=== PATIENT | male | born 1970 | race Caucasian/White ===

== ENCOUNTER 2025-08-20 07:43 | Day surgery (SDC) | payer BC, SELFPAY ==
[2025-07-24 11:17] VITALS: BMI 35.6
[2025-07-24 11:46] LABS: Hematocrit 39.5 % (39.0-52.0); Hemoglobin 14.2 g/dL (13.0-18.0); Mean Corp Hgb Conc. 35.9 g/dL (33.0-37.0); Mean Corpuscular Volume 83.0 fL (80.0-94.0); Nucleated Red Blood Cells % 0 % (-); Platelet Count 265 10^3/uL (130-400); Red Cell Dist. Width 12.0 % (11.5-14.5)
[2025-07-24 11:57] LABS: ALT (SGPT) 16 U/L (0-50); AST (SGOT) 19 U/L (17-59); Albumin 5.1 g/dl (3.5-5.0); Alkaline Phosphatase 45 U/L (38-126); Blood Urea Nitrogen 9 mg/dl (9-20); Calcium 10.1 mg/dl (8.4-10.2); Carbon Dioxide 26 mmol/L (22-30); Chloride 95 mmol/L (98-107); Estimated Creatinine Clearance > 125 ml/min; Glucose 121 mg/dl (70-99); Magnesium 2.0 mg/dl (1.6-2.3); Potassium 3.7 mmol/L (3.5-5.1); Sodium 131 mmol/L (135-145); Total Protein 8.0 g/dl (6.3-8.2); eGFR > 60.00
[2025-07-24 12:10] LABS: INR 1.07; PT 14.4 Sec (11.4-14.6)
--- NOTE | 2025-07-24 12:14 | HPS.HSE ---
Family Physician
-
Family Physician: Ghassan Lockhart
Chief Complaint
-
Paroxysmal atrial fibrillation.
History of Present Illness
The patient is a 54 year old male presenting today for paroxysmal atrial fibrillation. The patient reports a history of significant exertional dyspnea and fatigue secondary to this diagnosis. He previously underwent a cardioversion in 2013
and pulmonary vein isolation in 2020 for his arrhythmia. Unfortunately, his arrhythmia returned in January 2024 after an alcoholic binge. He has cut down on his alcohol use since this incident but still remains in atrial fibrillation. He is on current
pharmacological therapy with Carvedilol. He notes that he has been compliant with Eliquis for oral anticoagulation. He would like to proceed with pulmonary vein isolation at this time for more definitive arrhythmia management. He denies any current
complaints today such as chest pain, shortness of breath at rest, palpitations, nausea, vomiting, diarrhea, lightheadedness, dizziness, cough, sore throat, or fever.
Medical History
Past Medical History
Past Medical History: Reports Other
Additional Past Medical History:
1. Paroxysmal atrial fibrillation, status post cardioversion, 10/2014, pulmonary vein isolation 08/2021; pharmacological therapy with Carvedilol and oral anticoagulation with Eliquis.
2. Hypertension.
3. Hyperlipidemia.
4. Congestive heart failure, preserved ejection fraction.
5. Obstructive sleep apnea, compliant with CPAP.
6. Multilevel degenerative disc disease.
7. Spinal stenosis.
8. Osteoarthritis.
9. ADHD.
10. Mild leukopenia.
11. Mild hyponatremia.
12. Obesity, BMI 35.6.
13. History of tobacco abuse with current vape use.
Past Surgical History: Reports Other
Additional Past Surgical History:
1. Pulmonary vein isolation.
2. Cardioversion.
3. C3-C4 ACDF.
4. C3 revision, C4-C7 fusion.
5. Lumbar laminectomy x2.
6. Umbilical hernia repair.
7. Colonoscopy.
Social History
Tobacco: Former Smoker (He is a former cigar smoker. He currently uses a vape daily. )
Alcohol: Other (Occasional use reported. )
Personal:
Living: Other (The patient lives in a two-story home with his .)
Family History
Family History: Not pertinent
Allergies / Home Medications
Allergy/Medication List:
Home medications:
1. Acetaminophen 650 mg p.o. every 4 hours as needed.
2. Dillon 3/fish oil 4000 mg p.o. daily.
3. Nexlizet 180-10 mg p.o. daily.
4. Carvedilol 25 mg p.o. twice a day.
5. Edarbyclor 40/25 mg, 1 tab p.o. daily.
6. Apixaban 5 mg p.o. twice a day.
7. Amlodipine 10 mg p.o. daily.
ALLERGIES: No known allergies.
Review of Systems
-
A 12 point ROS was completed and negative except as noted: Yes
Physical Exam
Vital Signs
Blood pressure 126/85. Heart rate 89. Respirations 18. Pulse ox 96%.
Height 5 feet, 8 inches. Weight 106.2 kg. BMI 35.6.
Physical Exam
General: Well Developed, Well Nourished and No Apparent Distress
HEENT: NormoCephalic, Moist mucous membranes, Atraumatic and PERRLA
Respiratory: Clear
Cardiac: Irregular Rhythm
GI: Soft, Non Tender, Non Distended and Other (Obese. )
Musculoskeletal: No Edema, Normal Gait & Station and Other (Right sided ankle brace noted. )
Skin: Warm and Dry
Neuro: AO x 3 and Nonfocal/grossly intact
Laboratory Results
-
07/24/25 11:26
07/24/25 11:26
Laboratory Results
PT 14.4 Sec (11.4-14.6) 07/24/25 11:26
INR 1.07 07/24/25 11:26
Total Bilirubin 0.5 mg/dl (0.2-1.3) 07/24/25 11:26
AST 19 U/L (17-59) 07/24/25 11:26
ALT 16 U/L (0-50) 07/24/25 11:26
Alkaline Phosphatase 45 U/L (38-126) 07/24/25 11:26
Magnesium 2.0.
Type and screen A negative.
EKG 07/24/2025: Atrial fibrillation. Nonspecific ST and T wave abnormality.
Chest CT 07/24/2025: Short segment common vestibule for the left superior and inferior pulmonary veins, fairly commonly seen and considered normal variant. No evidence for left atrial thrombus.
Echocardiogram 03/22/2023: Left atrial enlargement. Normal valvular structures. Normal left and right ventricular systolic function. Grade 1 diastolic dysfunction. Normal right ventricular systolic pressure.
Impression/Plan
-
IMPRESSION/PLAN:
1. Paroxysmal atrial fibrillation: The patient is in need of pulmonary vein isolation with Dr. Ghassan Saravia on 08/20/2025. The patient just underwent a cervical fusion in April 2025 and is assured by his neurosurgeon, Dr. Ulysses Diaz, that he is
ready to proceed with his ablation. The benefits and risks of the procedure have been explained to the patient. The patient understands these risks and wishes to proceed. He will not be required to undergo a pre-procedural transesophageal
echocardiogram as he has been compliant with his home oral anticoagulation. He is aware to continue his Eliquis uninterrupted for 30 days prior to his procedure. He will take no medications the morning of his ablation.
2. Mild hyponatremia: The patient will need a repeat sodium drawn the morning of his procedure per Dr. Saravia. He will need to come in earlier than usual for his repeat lab and, preferably, should not be the first surgical case. This information
was relayed to Ruth Ann is surgical scheduling pre-operatively.
[2025-08-20] VITALS (15 sets, daily range): BP systolic 107–149; BP diastolic 73–118
[2025-08-20] MEDS: TYLENOL 1000 MG PO (08:48)
[2025-08-20 11:30] LABS: ACT-LR - POC 268 Seconds (116-155)
[2025-08-20 11:50] LABS: ACT-LR - POC 236 Seconds (116-155)
--- NOTE | 2025-08-20 12:08 | ITS.CL.ABL ---
Tour Leader - Ablation
Ablation
Procedure Report:
ELECTROPHYSIOLOGY ABLATION STUDY
DATE:: August 20, 2025�����������������������������REFERRING: Dr. Jose A Lynch
INDICATION: Persistent supraventricular tachycardia in the form of atrial fibrillation.��Prior PVI in 2020
HISTORY: See H and P.��As above
ANTIARRHYTHMIC DRUG: Coreg
PRE-PROCEDURE KINZA: No atrial thrombus
PRESENTING RHYTHM: A-fib
'TIME-OUT':��called and confirmed.
SEDATION/ANESTHESIA:��provided via the anesthesia department using general anesthesia (LMA).
INTRAVENOUS/ARTERIAL ACCESS:
Right femoral venous - 8Fr
Left femoral venous - 8 Fr, 6 Fr
Ultrasound guidance for bilateral femoral vein access was utilized by me to obtain access with demonstration of normal anatomy
CHADS-VASC Score:
HAS-Bled Score
PROCEDURE:
1.��A decapolar CS catheter was placed within the CS for mapping and pacing.��This was also used as the reference catheter for the 3-D map.
2. The intracardiac ultrasound catheter was positioned in the RA to identify the FO for targeting of transseptal puncture, assist��in identification of the pulmonary vein ostia, monitoring pre and post ablation pulmonary vein flow velocities,
monitoring for 'bubble' formation during RF application as a sign of thermal injury,��and to monitor for pericardial effusion during mapping and ablation procedure.���Left atrial size, LV ejection fraction, and pulmonary vein flows were monitored
pre and post ablation procedure. The other valves were inspected and found to be free of significant regurgitation or stenosis.
3.��Half of the calculated heparin bolus was administered prior to the first transeptal puncture.��Transseptal puncture was performed to diagnose RA and LA pressure so that safety of LA mapping and ablation could be further assessed, and to access
the left atrium and pulmonary veins for mapping and ablation.��This entailed advancing an 16.8 Kosovan sheath, RF wire with dilator into the superior vena cava and withdrawing both (monitoring intracardiac ultrasound, fluoroscopy and tip pressure)
with the tip oriented toward the atrial septum.��The fossa ovalis was engaged (indicated by sudden displacement of the sheath tip as well as tenting of the fossa seen on intracardiac ultrasound).��Left atrial access required a pass with the
Brockenbrough needle extended.��Left atrial catheter position was confirmed by pressure monitoring (RA mean pressure 2 mm Hg and LA mean presure 4 mm Hg), LA saturation (99%),��as well as fluoroscopy and the left atrial pressure 4 was answered with
750 cc of normal saline fluids.��The sheath was advanced over the dilator and positioned in the left atrium.��This procedure was repeated for the Agilis sheath.��The remainder of the calculated heparin bolus was administered and heparin was
infused to maintain ACT at 300 -350 seconds throughout the case.
4.��RA pacing was performed via the proximal decapolar poles and LA pacing was performed via the distal decapolr poles.
5. A quadrapolar catheter was first positioned at the His position for His Bundle recording which was tagged via the 3-D Navex sytem, and then passed to the RVA for RV pacing and recording.
6. The Penta spline grade placed lesion of the LIPV, LSPV, RSPV and the RIPV.��
7.��Next, a 3-D map was created using Navex.���A 3-D reconstructed CT image was compared to the 3-D Navex map to assist in anatomic interpretation, mapping and ablation.��The CT image and the NavX image were fused.
8. Focal reconnection of the right superior pulmonary vein. The remainder of the pulmonary veins had entrance block. 55 lesions were given to the posterior wall roof and floor of the left atrium and flower pose with olive and basket lesions given
to the right superior pulmonary vein. A-fib persisted through the pulmonary vein isolation as well as the roof posterior wall and floor line of the left atrium. The patient was converted to sinus rhythm with a 200 J synchronized biphasic shock and
was having intermittent short runs of paroxysmal A-fib and repeat grid mapping demonstrated focal reconnection at the right superior pulmonary vein as well as the roof outside the right superior pulmonary vein. Additional lesions were given and all
of in basket pose rendering the right superior pulmonary vein isolated with entrance and exit block.
9. Normal sinus node AV node function noted
TOTAL FLOURO TIME: 12 minutes 123 mGy
TOTAL RF DURATION: 0 minutes
REVERSAL OF HEPARIN: 35 mg of protamine, slow IV administration
COMPLICATIONS:
None
Intracardiac US shows no pericardial effusion post ablation.
SUMMARY:��
Complex left atrial mapping and ablation.
Isolation of the right superior pulmonary and the roof posterior wall and floor of the left atrium leading to entrance and exit block of PV's and LAPW isolation. Noninducible for other tachyarrhythmias post procedure.
RECOMMENDATIONS:
1. Same-day discharge is a consideration
2. Resume anticoagulation
3.� Coreg
4.� With any further recurrence would consider class III and arrhythmic drug therapy
Copy to: Dr. Jose A Lynch
--- NOTE | 2025-08-20 16:29 | W.PN.UPDATE ---
Update Note
Progress Note Update
54 yo WM s/p PVI (Same day). He denies cp, sob, trevor diet, voiding, R fem site c/d/i no HT, soft, EKG SR. He will resume Eliquis tonight. Activity restrictions reviewed. He will f/u Dr. Lynch in 3 mo. He is for d/c home after 5p if groin stable.
--- NOTE | 2025-08-20 16:42 | PTCARENOTE ---
pt bleeding from left groin during ambulation. pt back to bed, pressure held for 10 min and new dressing applied. Tarsha Lux stockholder at bedside. no hematoma. pt to remain in bed for 1 hr and them attempt to ambulate again.
== END 2025-08-20 17:45 | disposition home or self-care (01) ==
LOC: CATH 07:43
PROVIDERS: ATTENDING PHYSICIAN Internal Medicine Cardiovascular Disease; FAMILY PHYSICIAN Internal Medicine; OTHER PHYSICIAN Internal Medicine Cardiovascular Disease
DX: I48.19 Other persistent atrial fibrillation (principal); I11.0 Hypertensive heart disease with heart failure; E78.5 Hyperlipidemia, unspecified; M48.00 Spinal stenosis, site unspecified; E66.9 Obesity, unspecified; E87.1 Hypo-osmolality and hyponatremia; M19.90 Unspecified osteoarthritis, unspecified site; D72.819 Decreased white blood cell count, unspecified; Z72.0 Tobacco use; G47.33 Obstructive sleep apnea (adult) (pediatric); Z79.899 Other long term (current) drug therapy; Z79.01 Long term (current) use of anticoagulants; I50.30 Unspecified diastolic (congestive) heart failure; Z68.35 Body mass index [BMI] 35.0-35.9, adult; Z98.1 Arthrodesis status
CPT/HCPCS: C1732; C1894; C1769; C1892; C1759; 36415; 75572; 80053; 83735; 85025; 85347; 85610; 86850; 86900; 86901; 93005; 93656; 93657; C1733; C1766; Q9967

== ENCOUNTER 2025-11-23 13:34 | Emergency (ER) | payer BC, SELFPAY ==
[2025-11-23 13:38] VITALS: BP 155/109
--- NOTE | 2025-11-23 16:46 | ED.MUSCINJ ---
HPI-Injury
General
Chief Complaint: Musculo-Skeletal Complaint
Source: patient
Exam Limitations: none
Time Seen by Provider: 11/23/25 16:45
Nursing documentation reviewed up to this point in time: agreed with
History of Present Illness-Injury
Initial Injury comments:
55-year-old male with history of A-fib on Eliquis, HTN, HLD, sleep apnea with CPAP, ADHD presents for left hip pain. He states he had a cardiac ablation with bilateral femoral access on 08/16/[address] Saravia where he was on the table for 4
hours. After laying flat for 4 hours that day and holding pressure on the area he got up to walk and it bled 'a lot,' and he had a lay back down for a while to put pressure on it. They wanted to keep him overnight but he insisted on going home. 2
days later the pain started in his left hip. He states it is in the left lateral buttock to the left hip and radiates around the front to the left anterior thigh.
The pain has been waxing and waning, sometimes: Completely but in the past 3 days has become much worse, 10/10 earlier today, worse in the mornings and improves some as he is up and around. He states it is now 7/10 at rest on the stretcher. He saw
his PCP about this pain and was started on Lyrica for musculoskeletal pain. He states this is not working at all.
He denies weakness in the legs. He denies abdominal pain. He denies fever or chills.
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
Past History
Past History
ED Past Medical History: Arrthythmia (A-fib on Eliquis)
ED Past Surgical History: Cardiac (Cardiac ablation 08/20/2025), Orthopedic and Other (Umbilical hernia repair 2004)
Social History
Tobacco: Vaping
Alcohol: Occasional
Personal:
Living: with family
Employment: Employed
Review of Systems
Review of Systems
Allergies reviewed?: Yes
All Other Systems: ROS reviewed and negative except as documented in HPI and ROS
Constitutional: Denies fever
Respiratory: Denies trouble breathing
Cardiac: Denies chest pain
ABD/GI: Denies abdominal pain or nausea
: Denies difficulty voiding
Musculoskeletal: Reports other (pain left hip radiating to anterior left thigh); Denies back pain
Skin: Reports no symptoms
Neurological: Reports no symptoms
Phy Exam
Physical Exam
Physical Exam:
GENERAL: No acute distress. A&Ox3.
CONSTITUTIONAL: Afebrile.
EYES: clear, conjunctivae normal
ENMT: moist mucus membranes, Pharynx nl
RESPIRATORY: Regular respirations, nonlabored, lungs clear.
CARDIOVASCULAR: Regular rate and rhythm, no murmurs, no rubs.
GI: Soft, nontender, normal BS
: No groin tenderness or swelling or discoloration, normal femoral pulse, normal pedal pulse. Distal n/v intact.
MUSCULOSKELETAL: Moves with ease. Well perfused. Point tender over lateral left hip greater trochanter.
SKIN: Warm, dry, pink
PSYCH: Normal mood and affect. Well kept, interactive and appropriate
NEUROLOGIC: Awake, alert and oriented. No focal neurological deficits
Injury Course
Orders/Labs/Results
Orders:
Orders
11/23/25 13:40
Hip, Left 2-3 Views [CR Hip - LT w/wo Pel 2-3 Vw*] Urgent
Comment:
Reason For Exam: pain
Include a pelvis x-ray?: Yes
11/23/25 17:03
US Groin (vascular exam) LT Urgent
Reason For Exam: pain left hip. had femoral access ablation 08/20/25
11/23/25 17:14
Dexamethasone [Decadron] 10 mg PO NOW STA
MDM/Problems Addressed
Differential Diagnosis Includes:
Pseudo aneurysm, hip bursitis, sciatica
MDM/Problems Addressed:
55-year-old male with history of A-fib on Eliquis, HTN, HLD, sleep apnea with CPAP, ADHD presents for left hip pain. He states he had a cardiac ablation with bilateral femoral access on 08/16/[address] Saravia where he was on the table for 4
hours. After laying flat for 4 hours that day and holding pressure on the area he got up to walk and it bled 'a lot,' and he had a lay back down for a while to put pressure on it. They wanted to keep him overnight but he insisted on going home. 2
days later the pain started in his left hip. He states it is in the left lateral buttock to the left hip and radiates around the front to the left anterior thigh.
The pain has been waxing and waning, sometimes: Completely but in the past 3 days has become much worse, 10/10 earlier today, worse in the mornings and improves some as he is up and around. He states it is now 7/10 at rest on the stretcher. He saw
his PCP about this pain and was started on Lyrica for musculoskeletal pain. He states this is not working at all.
He denies weakness in the legs. He denies abdominal pain. He denies fever or chills.
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
Hip xray radiology report read: Nothing acute. Joint spaces well-maintained
Consulted vascular surgery Dr. Jin who OK's to call prior authorization technician in to do ultrasound to rule out pseudoaneurysm
6:45 PM:
Ultrasound shows no pseudoaneurysm
plan: Patient reassured. Treat for left hip bursitis. 1 dose Decadron given here
Prescription for prednisone taper sent to his pharmacy.
Referred to orthopedics for follow-up as needed
Note given for off work for the next 2 days. he is off all next week
Patient observed ambulating out with normal gait at discharge
*Pulse Oximetry
SaO2: 98
Oxygen Mode of Delivery: Room air
Patient hypoxic: no
*Critical Care Note
Total Time (30-74mins, 75-104mins- exclusive of procedures): Not Applicable
ED Attending Note
-
Portions of this chart may have been created with voice recognition software.� Occasional wrong word or��sound alike� substitutions may have occurred due to the inherent limitations of voice recognition software.
Discharge Plan
Departure
Patient Disposition: Home (Routine Discharge)
Date of Disposition: 11/23/25
Time of Disposition: 18:55
Patient with high blood pressure during this ER visit?: No
Condition: Good
Discharge Problem:
Greater trochanteric bursitis of left hip
Instructions: Hip Bursitis Exercises, Bursitis - ED (DC)
Prescriptions:
New
prednisone 10 mg Tablet
See Rx Instructions .ROUTE .COMPLEX Qty: 30 0RF
Rx Instructions:
Take By Mouth:
40 mg daily x3 days, 30 mg daily x3 days,
20 mg daily x3 days, 10 mg daily x3 days.
No Action
amlodipine [Norvasc] 10 MG tablet
10 mg PO QPM
omega [id number]-ssp-[id number]-fish oil 1,000 MG capsule
4,000 mg PO DAILY
Edarbyclor 1 EACH tablet
1 ea PO DAILY
carvedilol 25 mg Tablet
25 mg PO BID
acetaminophen 325 mg Tablet
650 mg PO Q4H PRN (Reason: pain)
Nexlizet 180-10 mg Tablet
1 tab PO QPM
Eliquis 5 MG tablet
5 mg PO BID Qty: 0 0RF
Referrals:
Ghassan Lockhart MD [Family Provider, Internal Medicine]
Norman Navarrete MD [Active, Orthopedics] - As needed
Stand Alone Forms: Return to Work
Activity Restrictions/Additional Instructions:
As we discussed, ultrasound shows no pseudoaneurysm, your hip x-ray is normal
Your pain is most likely from left hip bursitis, and overuse or inflammatory problem
This is an inflammatory problem and very painful. It may take a couple or a few weeks to be completely better as long as you do not keep 3 aggravating
I provided you with a work note to take the next 2 days off and since you have off next week this will give you a good opportunity to rest the hip joint
I sent a prescription to your pharmacy for a prednisone taper, started tomorrow you were given a dose of steroid here today.
You may also take ibuprofen 600 mg up to twice a day as needed for pain
See the orthopedic doctor if you are not a lot better in 5 days or not 100% better in 3 to 4 weeks.
Interventions
Interventions:
*ED COVID-19 Vaccine History Last Done: 11/23/25 13:38
*ED Influenza Vaccine History Last Done: 11/23/25 13:38
[facility] Risk Assessment Tool Last Done: 11/23/25 17:59
*Risk Screen - Suicide (C-SSRS) Last Done: 11/23/25 13:38
*Nursing Disposition Last Done: 11/23/25 19:08
ED-Musculoskeletal Assessment Last Done: 11/23/25 17:59
Discharge Date and Time
Discharge Date/Time: 11/23/25 19:08
Print Language: SERBIAN
[2025-11-23] MEDS: DECADRON 10 MG PO (17:22)
[2025-11-23 19:00] VITALS: BP 143/88
== END 2025-11-23 19:08 | disposition home or self-care (01) ==
LOC: EMR 13:34
PROVIDERS: EMERGENCY PHYSICIAN Emergency Medicine; FAMILY PHYSICIAN Internal Medicine
DX: M70.62 Trochanteric bursitis, left hip (principal); M79.652 Pain in left thigh; E78.5 Hyperlipidemia, unspecified; I10 Essential (primary) hypertension; I48.91 Unspecified atrial fibrillation; F17.290 Nicotine dependence, other tobacco product, uncomplicated; G47.30 Sleep apnea, unspecified; Z79.01 Long term (current) use of anticoagulants
CPT/HCPCS: 99284; 73502; 93926